=== PATIENT | male | born 1985 | race Caucasian/White ===

== ENCOUNTER 2017-01-14 21:18 | Emergency (ER) | payer OTHER ==
[2017-01-14 21:25] VITALS: BMI 30.4
[2017-01-14] MEDS ORDERED: ONDANSETRON 4 MG/2 ML VIAL IVPUSH ONE (23:14)
[2017-01-14] MEDS ORDERED: SODIUM CHLORIDE 1,000 ML IV STA (23:14)
[2017-01-14] MEDS ORDERED: ACETAMINOPHEN 1000 MG/100 ML VIAL (NON FORMULARY) IVPB ONE (23:14)
--- NOTE | 2017-01-14 23:20 | PDOC ---
History of Present Illness - General History Source: Patient Exam Limitations: No Limitations - History of Present Illness Initial Comments: CHIEF COMPLAINT: 31 y/o febrile, tachycardic male with no significant PMH c/o flu like symptoms for 6 days. HISTORY OF PRESENT ILLNESS: The patient admits to body aches, fever, cough and vomiting for the past 6 days. He was seen by his PCP 6 days ago and tested negative for the flu and strep throat. However, he called his PCP the next day , who sent him tamiflu anyway. He is on his 4th day of tamiflu, alternating between 400mg of advil and 650mg of tylenol every 4 hours for fever but his symptoms aren't improving. Vital signs on arrival are notable for pulse of 132 secondary to temp of 99.8. REVIEW OF SYSTEMS: GENERAL/CONSTITUTIONAL: + fever/chills. +body aches. No weakness. No weight change. HEAD, EYES, EARS, NOSE AND THROAT: No change in vision. No ear pain or discharge. No sore throat. CARDIOVASCULAR: No chest pain or shortness of breath. RESPIRATORY: +dry cough. No wheezing, or hemoptysis. GASTROINTESTINAL: +vomiting. No abd pain, diarrhea, constipation. GENITOURINARY: No dysuria, frequency, or change in urination. MUSCULOSKELETAL: No joint or muscle swelling or pain. No neck or back pain. SKIN: No rash or easy bruising. NEUROLOGIC: No headache, vertigo, loss of consciousness, or loss of sensation. PHYSICAL EXAM: GENERAL: The patient is awake, alert, and fully oriented, nontoxic but ill appearing. HEAD: Normal with no signs of trauma. ENT: Pupils equal, round and reactive to light, extraocular movements intact, sclera anicteric, conjunctiva clear. Neck supple. No tonsilar edema or exudate. LUNGS: Clear to auscultation bilaterally. Normal excursion. No respiratory distress or use of accessory muscles. CV: Rapid rate/regular rhythm, S1/S2, no MRG. Cap refill < 2 sec. ABDOMEN: Soft, non-distended, non-tender even to deep palpation, no hepatomegaly or splenomegaly, no masses. EXTREMITIES: Normal range of motion, no edema. NEUROLOGICAL: Normal speech, normal gait. CN II-XII grossly intact. PSYCH: Normal mood, normal affect. SKIN: Hot to touch. <Wohltman,Dalia - Last Filed: 01/15/17 04:04> <Ashish Leon - Last Filed: 01/15/17 06:56> - General Chief Complaint: SIRS, Suspected/Possible Stated Complaint: COLD SYMPTOMS Time Seen by Provider: 01/14/17 22:24 Past History - Psycho/Social/Smoking Cessation Hx Suicidal Ideation: No Smoking History: Never smoked <Dalia Roe - Last Filed: 01/15/17 04:04> <Ashish Leon - Last Filed: 01/15/17 06:56> - Past Medical History Allergies/Adverse Reactions: Allergies Allergy/AdvReac Type Severity Reaction Status Date / Time No Known Allergies Allergy Verified 01/14/17 21:25 Home Medications: Ambulatory Orders Acetaminophen [Tylenol] 650 mg PO TID PRN 01/14/17 Ibuprofen [Advil -] 200 mg PO TID PRN 01/14/17 Oseltamivir Phosphate [Tamiflu -] 75 mg PO DAILY 01/14/17 *Physical Exam - Vital Signs Last Vital Signs Temp Pulse Resp BP Pulse Ox 99.8 F H 132 H 20 126/70 95 01/14/17 21:23 01/14/17 21:23 01/14/17 21:23 01/14/17 21:23 01/14/17 21:23 <Dalia Roe - Last Filed: 01/15/17 04:04> - Vital Signs Last Vital Signs Temp Pulse Resp BP Pulse Ox 98.4 F 98 H 16 118/76 96 01/15/17 03:43 01/15/17 03:43 01/15/17 03:43 01/15/17 03:43 01/15/17 03:43 <Ashish Leon - Last Filed: 01/15/17 06:56> ED Treatment Course - LABORATORY CBC & Chemistry Diagram: 01/15/17 00:33 01/15/17 01:26 <Dalia Roe - Last Filed: 01/15/17 04:04> - LABORATORY CBC & Chemistry Diagram: 01/15/17 00:33 01/15/17 01:26 - ADDITIONAL ORDERS Additional order review: Laboratory Results 01/15/17 01/15/17 01/15/17 02:50 01:26 00:33 Sodium 142 Cancelled Potassium 3.7 Cancelled Chloride 102 Cancelled Carbon Dioxide 30 Cancelled Anion Gap 10 Cancelled BUN 6 L Cancelled Creatinine 0.7 Cancelled Creat Clearance w eGFR > 60 Cancelled Random Glucose 103 Cancelled Calcium 8.3 L Cancelled Total Bilirubin 0.5 Cancelled AST 13 L Cancelled ALT 23 Cancelled Alkaline Phosphatase 94 Cancelled Total Protein 6.9 Cancelled Albumin 3.2 L Cancelled Urine Color Straw Urine Appearance Clear Urine pH 6.0 Ur Specific [place] 1.011 Urine Protein Negative Urine Glucose (UA) Negative Urine Ketones Negative Urine Blood 1+ H Urine Nitrite Negative Urine Bilirubin Negative Urine Urobilinogen Negative Ur Leukocyte Esterase Negative Urine RBC 3 Urine WBC 2 Ur Epithelial Cells Rare Urine Bacteria Rare Urine Mucus Rare 01/15/17 00:33 RBC 5.02 MCV 83.3 MCHC 33.6 RDW 13.8 MPV 8.0 Neutrophils % 74.3 Lymphocytes % 12.8 Monocytes % 12.3 H Eosinophils % 0.2 Basophils % 0.4 - Medications Given in the ED: ED Medications Discontinued Medications Generic Name Dose Route Start Last Admin Trade Name Ben PRN Reason Stop Dose Admin Acetaminophen 1,000 mg 01/14/17 23:14 01/15/17 01:03 Ofirmev Injection - IVPB 01/14/17 23:15 1,000 mg ONCE ONE Administration Sodium Chloride 1,000 mls @ 1,000 mls/hr 01/14/17 23:14 01/15/17 00:35 Normal Saline - IV 01/15/17 00:13 1,000 mls/hr ASDIR STA Administration Sodium Chloride 1,000 mls @ 1,000 mls/hr 01/15/17 02:02 01/15/17 02:04 Normal Saline - IV 01/15/17 03:01 1,000 mls/hr ASDIR STA Administration Ondansetron HCl 4 mg 01/14/17 23:14 01/15/17 00:35 Zofran Injection IVPUSH 01/14/17 23:15 4 mg ONCE ONE Administration <Ashish Leon - Last Filed: 01/15/17 06:56> Medical Decision Making - Medical Decision Making A/P: 31 y/o febrile, tachycardic male with flu like symptoms, on day 4 of tamiflu. Plan is as follows: 1. Labs 2. UA 3. IV fluids x 2 4. IV Ofirmev 5. IV zofran The patient states he feels better and is now afebrile. Labs unremarkable Suggested he complete his tamiflu rx, alternate between tylenol and motrin every 3 hours, drink plenty of fluids and f/u with his PCP EVELIA. Pt instructed to return to the ER with any worsening or concerning symptoms. The patient verbalizes understanding of all instructions, has no further questions and is awaiting discharge. <Dalia Roe - Last Filed: 01/15/17 04:04> - Medical Decision Making 01/15/17 06:56 ED ATTENDING NOTE: I was available for consultation and review of the case and plan as needed. <Ashish Leon - Last Filed: 01/15/17 06:56> *DC/Admit/Observation/Transfer <Dalia Roe - Last Filed: 01/15/17 04:04> <Ashish Leon - Last Filed: 01/15/17 06:56> Diagnosis at time of Disposition: Viral syndrome - Discharge Dispostion Disposition: HOME Condition at time of disposition: Improved - Referrals Referrals: STAFF,NOT ON [Primary Care Provider] - - Patient Instructions Printed Discharge Instructions: DI for Viral Syndrome Additional Instructions: Discharge Instructions: -Alternate between 650mg of tylenol and 600mg of Motrin/Advil every 3 hours for fever -Drink plenty of fluids and get lots of rest -Complete course of tamiflu -Follow up with your doctor as soon as possible -Return to the ER with any worsening or concerning symptoms - Post Discharge Activity Work/School Note: Back to Work
[2017-01-15] MEDS ORDERED: ONDANSETRON 4 MG/2 ML VIAL ONE (00:21)
[2017-01-15 00:48] LABS: BASOPHIL 0.4 % (0-2.0); EOSINOPHIL 0.2 % (0-4.5); MCHC 33.6 g/dl (32.0-35.9); MEAN CELL VOLUME 83.3 fl (80-96); NEUTROPHILS 74.3 % (42.8-82.8); PLATELET COUNT 256 K/MM3 (134-434); RDW 13.8 % (11.9-15.9); WHITE BLOOD COUNT 15.5 K/mm3 (4.0-10.0)
[2017-01-15] MEDS ORDERED: SODIUM CHLORIDE 1,000 ML IV STA (02:02)
[2017-01-15 02:10] LABS: ALBUMIN 3.2 g/dl (3.4-5.0); ANION GAP 10 (8-16); BILIRUBIN,TOTAL 0.5 mg/dL (0.2-1.0); CALCIUM 8.3 mg/dL (8.5-10.1); CO2 30 mmol/L (21-32); CREATININE 0.7 mg/dL (0.7-1.3); GLUCOSE,RANDOM 103 mg/dL (74-106); SGOT/AST 13 U/L (15-37); SGPT/ALT 23 U/L (12-78); TOT PROT 6.9 g/dl (6.4-8.2)
[2017-01-15 02:11] LABS: ALK PHOS 94 U/L (45-117)
[2017-01-15 03:11] LABS: URINE APPEARANCE CLEAR; URINE BILIRUBIN NEGATIVE (NEGATIVE); URINE COLOR STRAW; URINE GLUCOSE (UA) NEGATIVE (NEGATIVE); URINE KETONE NEGATIVE (NEGATIVE); URINE LEUK ESTERASE NEGATIVE (NEGATIVE); URINE NITRITE NEGATIVE (NEGATIVE); URINE PROTEIN NEGATIVE (NEGATIVE); URINE UROBILINOGEN NEGATIVE E.U./dl (0.2-1.0)
[2017-01-15 03:17] LABS: URINE BLOOD 1+ (NEGATIVE)
[2017-01-15 03:32] LABS: URINE BACTERIA RARE /hpf (NONE SEEN); URINE MUCUS RARE; URINE RBC 3 /hpf (0-3); URINE WBC 2 /hpf (3-5)
[2017-01-15 03:44] VITALS: BP 118/76; PULSE 98
[2017-01-15 03:51] VITALS: TEMP 98.4
== END 2017-01-15 04:14 | disposition home or self-care (01) ==
LOC: JER 21:18
PROC: 3E0337Z Introduction of Electrolytic and Water Balance Substance into Peripheral Vein, Percutaneous Approach (ICD-10-PCS; principal; 2017-01-14)
PROC: 3E033NZ Introduction of Analgesics, Hypnotics, Sedatives into Peripheral Vein, Percutaneous Approach (ICD-10-PCS; 2017-01-14)
PROC: 3E033GC Introduction of Other Therapeutic Substance into Peripheral Vein, Percutaneous Approach (ICD-10-PCS; 2017-01-14)
DX: B34.9 Viral infection, unspecified (principal)
CPT/HCPCS: 36415; 80053; 81003; 81015; 85025; 86308; 99282-25